=== PATIENT | male | born 1975 | race Two or more races ===

== ENCOUNTER 2019-01-09 20:16 | Emergency (ER) | payer MEDICAID, OTHER ==
[~2019-01-09] VITALS: Ht 175.3 cm; Wt 72.6 kg
--- NOTE | 2019-01-09 20:25 | NUR ---
Note undone in EDM - 01/09/19 at 2043 by NAIF BIBRA FROM HOME. INTOXICATED. BREATHING EVEN AND UNLABORED. C/O TAKING DEPAKOTE 1000MG, SEROQUEL 400MG AND ALCOHOL. FAMILY IS ALSO CONCERNED THAT PT VERBALIZED SUICIDAL IDEATION. PT TO ER BED 11. PT SEARCHED AND BELONGINGS FROM PT. PT IS ALSO PLACED ON SEIZURE PRECAUTION D/T SEIZURE DISORDER. AT BEDSIDE FOR EVAL. AWAITING ORDERS
--- NOTE | 2019-01-09 20:25 | NUR ---
BIBRA FROM HOME. INTOXICATED. BREATHING EVEN AND UNLABORED. C/O TAKING DEPAKOTE 1000MG, SEROQUEL 400MG AND ALCOHOL. FAMILY IS ALSO CONCERNED THAT PT VERBALIZED SUICIDAL IDEATION. PT HAS NO PLANS TO EXECUTE IDEATION. DENIES HI. PT TO ER BED 11. PT SEARCHED AND BELONGINGS FROM PT. PT IS ALSO PLACED ON SEIZURE PRECAUTION D/T SEIZURE DISORDER. MD AT BEDSIDE FOR EVAL. AWAITING ORDERS
[2019-01-09 20:53] LABS: EOSINOPHILS % (AUTO) 3.3 % (0.0-6.0); HEMATOCRIT 41 % (39-51); HEMOGLOBIN 14.1 g/dL (13.5-17.5); LYMPHOCYTES # (AUTO) 1.2 /CMM (0.8-4.8); LYMPHOCYTES % (AUTO) 30.8 % (20.0-44.0); MEAN CORPUSCULAR HGB CONC 35 g/dl (31.0-36.0); MEAN CORPUSCULAR VOLUME 96 fL (80-96); MONOCYTES # (AUTO) 0.3 /CMM (0.1-1.30); MONOCYTES % (AUTO) 6.9 % (2.0-12.0); NEUTROPHILS # (AUTO) 2.3 /CMM (1.8-8.9); PLATELET COUNT (AUTO) 296 /CMM (150-450); RED BLOOD CELL COUNT(AUTO) 4.23 MIL/uL (4.5-6.0)
[2019-01-09 21:03] LABS: CALCIUM, SERUM 8.5 mg/dL (8.5-10.1); CARBON DIOXIDE 23 mmol/L (21-32); CHLORIDE 103 mmol/L (98-107); GLUCOSE 107 mg/dL (74-106); POTASSIUM 3.3 mmol/L (3.5-5.1); SODIUM SERUM 139 mmol/L (136-145); UREA NITROGEN, BLOOD 17 mg/dL (7-18)
[2019-01-09 21:08] LABS: ALANINE AMINOTRANSFERASE 34 U/L (12-78); ALBUMIN 3.3 g/dL (3.4-5.0); ALCOHOL, BLOOD 111 mg/dL (0-0); ALKALINE PHOSPHATASE 79 U/L (46-116); ASPARTATE AMINOTRANSFERASE 26 U/L (15-37); BILIRUBIN,DIRECT 0.1 mg/dL (0.0-0.2); BILIRUBIN,TOTAL 0.3 mg/dL (0.2-1.0); TOTAL PROTEIN, SERUM 6.7 g/dL (6.4-8.2)
[2019-01-09 21:10] LABS: ACETAMINOPHEN < 2 ug/ml (10-30); SALICYLATE 1.6 mg/dL (2.8-20.0)
--- NOTE | 2019-01-09 21:24 | NUR ---
UNABLE TO COLLECT URINE SPECIMEN AT THIS TIME. PT TRIED TO VOID BUT UNABLE. BRYON MADRIGAL NOTIFIED. WILL TRY AGAIN
--- NOTE | 2019-01-09 21:56 | NUR ---
URINE COLLECTED AND SENT OT LAB
[2019-01-09 22:08] LABS: APPEARANCE,URINE Clear (CLEAR); BILIRUBIN,URINE Negative (NEGATIVE); BLOOD, URINE Negative Ery/uL (NEGATIVE); COLOR,URINE Yellow (YELLOW); KETONES,URINE Negative (NEGATIVE); LEUKOCYTE ESTERASE ,URINE Negative (NEGATIVE); NITRITE, URINE Negative (NEGATIVE); PH,URINE 5.5 (5.0-8.0); PROTEIN,URINE Negative (NEGATIVE); UGLUCOSE Negative (NEGATIVE); UROBILINOGEN,URINE 0.2 EU/dL (0.2)
--- NOTE | 2019-01-09 22:32 | NUR ---
CALLED PAINTER AND DECORATOR APPRENTICE FREELANCE WRITER FOR AN EVALUATION. LEFT A VOICEMAIL.
--- NOTE | 2019-01-09 22:43 | NUR ---
[employer] CALLED BACK, BUT PT WAS NOT AWAKE ENOUGH TO ALLOW THE CLININCIAN TO EVALUATE HIM. WILL CALL CLINICIAN WHEN PT IS MORE RECEPTIVE TO CONVERSATION.
--- NOTE | 2019-01-10 01:19 | NUR ---
pt in bed sleeping. NAD, noted.
--- NOTE | 2019-01-10 02:58 | NUR ---
PT STILL SLEEPING ARROUSED EASILY BUT STILL UNABLE TO MAKE DECENT CONVERSATION WITH PT.
--- NOTE | 2019-01-10 07:35 | NUR ---
TALKED TO [place] PT'S BROTHER STATED HE WILL CALL HIM [employer] TO PICK HIM UP.
--- NOTE | 2019-01-10 07:36 | NUR ---
Patient discharged to home in stable condition. Written and verbal after care instructions given. Patient verbalizes understanding of instruction. Pt ambulatory with a steady gait
--- NOTE | 2019-01-10 07:50 | NUR ---
FOOD TRAY PROVIDED.
--- NOTE | 2019-01-10 08:03 | NUR ---
IV removed. Catheter intact and site benign. Pressure and 4x4 applied to site. No bleeding noted. Patient discharged to home in stable condition. Written and verbal after care instructions given. Patient verbalizes understanding of instruction.
[2019-01-10 08:04] VITALS: BP 128/72
== END 2019-01-10 08:05 | disposition home or self-care (01) ==
LOC: ER 20:17
DX: R45.851 Suicidal ideations (principal); F10.229 Alcohol dependence with intoxication, unspecified; F31.9 Bipolar disorder, unspecified; F20.9 Schizophrenia, unspecified; J45.909 Unspecified asthma, uncomplicated; Y90.5 Blood alcohol level of 100-119 mg/100 ml
CPT/HCPCS: 36415; 80048; 80076; 80305; 80307; 80329; 81001; 85025; 93005; 99284; G0480; 81000-TC